=== PATIENT | male | born 1995 | race Caucasian/White ===

== ENCOUNTER 2020-04-25 12:02 | Outpatient (REF) | payer OTHER, SELFPAY | END 2020-04-25 12:03 | disposition home or self-care (01) | LOC: HO.LAB 12:02 | PROVIDERS: PCP Internal Medicine; Visit Provider Internal Medicine | DX: Z20.828 Contact with and (suspected) exposure to other viral communicable diseases (principal) | CPT/HCPCS: U0003 ==

== ENCOUNTER → 2021-02-13 15:52 | Outpatient (BNVA) | payer OTHER, SELFPAY | PROVIDERS: Visit Provider Internal Medicine Cardiovascular Disease | DX: R06.02 Shortness of breath (principal); R00.2 Palpitations | CPT/HCPCS: 93005 ==

== ENCOUNTER 2025-04-12 09:55 | Outpatient (AMB) | payer BC, SELFPAY ==
--- NOTE | 2025-04-12 10:17 | MHC.PC.OV ---
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 Required: No Accompanied by: Self / Same As Patient Allergies No Known Allergies (No Known Allergies*) Allergy (Verified 04/12/25 10:25) Medication List - Last Reconciled 04/12/25 by Isaias oMise MD No Known Home Meds Tobacco use date assessed: 04/12/25 Dental Screening Dental Screen Date: 04/12/25 Did you have a dental visit in the last 12 months?: No Did you have a dental problem in the last 6 months where you did not have access to dental care?: No Was dental information given to patient?: No HPI HPI Comments History of Present Illness Details The patient is a 30-year-old male presenting to [facility]. The patient reports experiencing heart palpitations a few times a week, with episodes lasting from two to three seconds, and occasionally up to 30 seconds. He has a family history of cardiac issues, including an older brother who potentially due to a heart problem and an uncle with known cardiac issues. The patient has not completed a stress test or other cardiac evaluations previously recommended by a clinical laboratory assistant. The patient denies any current chest pain, headaches, lightheadedness, or joint pain. He reports recent gastrointestinal discomfort characterized by increased gas and bloating over the past two weeks, without any significant dietary changes. The patient experiences anxiety, which he attributes to stress, but it does not significantly impact his daily activities. He consumes alcohol, typically five to six drinks when going out twice a month, and occasionally drinks wine at home a few times a week. He uses marijuana but does not smoke cigarettes. [facility] Medical History Anxiety Surgical History Hx of foot surgery Hx of facial fracture repair Hx of tonsillectomy Family History Father No problems noted. Mother Cardiac abnormality Brother No problems noted. Social History Household Members: None Housing: Apartment Alcohol intake: current Patient Tobacco Use Status: Never used Tobacco e-Cigarette/Vaping Use: Never Used Substance Use Type: Marijuana Current occupational status: employed Current occupation: [employer] Cognitive needs: No Hearing needs: No Vision needs: No Questionnaire PHQ-9 Over the last 2 weeks, how often have you been bothered by any of the following problems? 1. Little interest or pleasure in doing things: not at all 2. Feeling down, depressed, or hopeless: not at all 3. Trouble falling or staying asleep, or sleeping too much: not at all 4. Feeling tired or having little energy: not at all 5. Poor appetite or overeating: not at all 6. Feeling bad about yourself - or that you are a failure or have let yourself or your family down: not at all 7. Trouble concentrating on things, such as reading the newspaper or watching television: not at all 8. Moving or speaking so slowly that other people could have noticed. Or the opposite - being so fidgety or restless that you have been moving around a lot more than usual: not at all 9. Thoughts that you would be better off or of hurting yourself in some way: not at all Total score: 0 Source: Developed by Drs. Cesar Harris, Kassidy Yao, Pablo Pa and colleagues, with an educational selena from [employer]. Thrive Questionnaire Date Thrive assessed: 04/12/25 I am a: Patient What is your living situation today?: I have a steady place to live Within the past 12 months, did the food you bought not last and you didn't have the money to get more?: Sometimes True Within the past 12 months, did you worry whether your food would run out before you got money to buy more?: Sometimes True Do you have trouble paying for medicines?: No Do you have trouble getting transportation to medical appointments?: No Do you have trouble paying your heating and electricity bill?: Yes Do you have trouble taking care of your child, family member or friend?: No Do you have trouble with day-to-day activities such as bathing, preparing meals, shopping, managing finances, etc.?: No Are you currently unemployed and looking for a job?: No Are you interested in more education?: Yes Please select the resources that you would like help with: None Currently or been in a relationship where the following occur: No concerns reported THRIVE Score: 3 AUDIT C Alcohol Use Questionnaire (AUDIT-C) 1. How often do you have a drink containing alcohol?: 2-4 times a month 2. How many drinks containing alcohol do you have on a typical day when you are drinking?: 5 or 6 3. How often do you have six or more drinks on one occasion?: Monthly Total Score: 6 KEVIN-7 AMB Questionnaire KEVIN-7 Feeling nervous, anxious, or on edge: 1 = Several days Not being able to stop or control worryin = More than half the days Worrying too much about different things: 2 = More than half the days Trouble relaxin = Not at all Being so restless that it is hard to sit still: 1 = Several days Becoming easily annoyed or irritable: 1 = Several days Feeling afraid as if something awful might happen: 0 = Not at all Total KEVIN-7 score (0-4 normal; 5-9 mild; 10-14 moderate; 15-21 severe): 7 Source: Developed by Drs. Cesar Harris, Kassidy Yao, Pablo Pa and colleagues, with an educational selena from [employer]. Review of Systems Const Details: Positives besides what was mentioned in HPI are in BOLD Constitutional: No Weight Change, No Fever, No Chills, No Night Sweats, No Fatigue, No Malaise ENT/Mouth: No Hearing Changes, No Ear Pain, No Nasal Congestion, No Sinus Pain, No Hoarseness, No sore throat, No Rhinorrhea, No Swallowing Difficulty Eyes: No Eye Pain, No Swelling, No Redness, No Foreign Body, No Discharge, No Vision Changes Cardiovascular: No Chest Pain, No SOB, No PND, No Dyspnea on Exertion, No Orthopnea, No Claudication, No Edema, No Palpitations Respiratory: No Cough, No Sputum, No Wheezing, No Smoke Exposure, No Dyspnea Gastrointestinal: No Nausea, No Vomiting, No Diarrhea, No Constipation, No Pain, No Heartburn, No Anorexia, No Dysphagia, No Hematochezia, No Melena, No Flatulence, No Jaundice Genitourinary: No Dysmenorrhea, No DUB, No Dyspareunia, No Dysuria, No Urinary Frequency, No Hematuria, No Urinary Incontinence, No Urgency, No Flank Pain, No Urinary Flow Changes, No Hesitancy Musculoskeletal: No Arthralgias, No Myalgias, No Joint Swelling, No Joint Stiffness, No Back Pain, No Neck Pain, No Injury History Skin: No Skin Lesions, No Pruritis, No Hair Changes, No Breast/Skin Changes, No Nipple Discharge Neuro: No Weakness, No Numbness, No Paresthesias, No Loss of Consciousness, No Syncope, No Dizziness, No Headache, No Coordination Changes, No Recent Falls Psych: No Anxiety/Panic, No Depression, No Insomnia, No Personality Changes, No Delusions, No Rumination, No SI/HI/AH/VH, No Social Issues, No Memory Changes, No Violence/Abuse Hx., No Eating Concerns Heme/Lymph: No Bruising, No Bleeding, No Transfusions History, No Lymphadenopathy Endocrine: No Polyuria, No Polydipsia, No Temperature Intolerance Physical exam (Primary Care) Vital Signs: Last Vital Signs Temp 97.5 F 04/12/25 10:18 Pulse 84 04/12/25 10:18 Resp 18 04/12/25 10:18 BP 124/78 04/12/25 10:18 Pulse Ox 99 04/12/25 10:18 Oxygen Delivery Method Room Air 04/12/25 10:18 BMI result Body Mass Index 22.6 Tobacco/Smoking Status: Tobacco use Status Tobacco use date assessed 04/12/25 04/12/25 10:29 Patient Tobacco Use Status Never used Tobacco 04/12/25 10:29 e-Cigarette/Vaping Use Never Used 04/12/25 10:29 PHQ-9: PHQ-9 Score PHQ-9: Total score 0 04/12/25 10:34 Thrive Assessment: Date of Thrive Assessment Date Thrive assessed 04/12/25 04/12/25 10:29 Currently or been in a relationship where the following occur: No concerns reported Const Other: Pertinent findings are in BOLD GENERAL APPEARANCE NAD, activity normal for age, well developed/ well nourished, no cyanosis, pallor, or diaphoresis. EYES lids/conjunctiva normal. EARS/NOSE/THROAT Mucous membranes moist, nares normal, lips/teeth normal uvula midline without oral pharyngeal erythema, exudate or swelling TMs normal bilaterally. No lymphangitis/lymphedema. HEAD/NECK normocephalic atraumatic, no facial trauma, neck is supple. RESPIRATORY respiratory effort normal, speaks in full sentences, no tripod position, no accessory muscle use. Lungs clear to auscultation without rhonchi, wheezes, rales CARDIAC Regular rate and rhythm, no edema. ABDOMINAL Soft, ND/NT. No evidence of fluid wave. No pulsatile masses on exam, rebound tenderness, Reza sign or pain over Mcburney's point. MUSCLES/EXTREMITIES No abnormal range of motion, no swelling. SKIN Warm, pink and dry. No rashes, dermatoses, petechiae or lesions. NEUROLOGICAL Speech is clear and appropriate. Normal level of consciousness. Gait and coordination are normal. 5/5 strength in all extremities. PSYCH Normal mood and affect. Judgement/competence is appropriate Office Procedures Flu Questionnaire Does the patient have a severe egg allergy?: No Does the patient have severe life threatening allergies?: No Does the patient have a fever or illness today?: No Has the patient ever had Guillain-Frohna Syndrome?: No Has the patient ever had any past reaction to a flu shot?: No Immunizations Fluarix [id number] (PF) 45 mcg (15 mcg x 3)/0.5 mL IM syringe Performing Provider: Isaias Moise MD [facility] Administered by: Marilee Booker CMA on 04/12/25 10:57 Dose Route Admin Location Dispensed Lot Number Expiration Date [facility] Suture Gauger 0.5 mL IM Right Deltoid 0.5 mL [id number] 12/20/25 [id number] [employer] VIS Given Date VIS Provided VIS Publication Date 04/12/25 Single Vaccine 24 Eligibility Eligibility Date Funding Source Not [facility] Eligible 04/12/25 Private Coding Level of Care Code New Pt Level 4 (24176) New Pt Prev Care 18-39yr(50234 Diagnoses Palpitations R00.2 Healthcare maintenance Z00.00 KEVIN (generalized anxiety disorder) F41.1 Time Spent (min) 30 Assessment & Plan Assessment & Plan (1) Palpitations: Code(s): R00.2 - Palpitations Category: Medical Plan: Patient was seen by cardiology in the past. They recommended multiple tests however the patient got busy and did not complte them. New cardiology referral placed. We will follow-up cardiology reccs if any. (2) Healthcare maintenance: Code(s): Z00.00 - Encounter for general adult medical examination without abnormal findings Category: Medical Plan: CBC, CMP, Lipid panel, A1C, TSH w T4, vit D. Ordered today. Shingles 2 doses when >50 yo. NI. COVID: two doses. Completed in the past. Pneumococcal: 19-64. NI. Flu vaccine: Today. Tdap: Patient will check it at home and bring records with next visit. Colonoscopy: 45-75. at 45. No family history of colon cancer. AAA: 65 -75. NI. CT lun - 80. NI. PSA: 50 -70 every two years. NI. HIV: Ordered today. HBV: Ordered today. HCV: Ordered today. (3) KEVIN (generalized anxiety disorder): Code(s): F41.1 - Generalized anxiety disorder Category: Medical Plan: Patient has been managing KEVIN with lifestyle modifications. I advised the patient that to let us know if he feels like he is using Alcohol or MJ to help with anxiety. He reports Anxiety is not affecting his daily activities. CTM. Plan I discussed with the patient the importance of evaluating his heart palpitations given his family history of cardiac issues. We agreed on a referral to cardiology for a stress test and potential Holter monitoring. Routine labs were ordered to rule out other causes, including thyroid dysfunction. We also discussed the administration of the flu vaccine, which was given during the visit. I advised the patient to monitor his alcohol and marijuana use, particularly in relation to stress and anxiety management. Orders: Orders Hepatitis B Surface Antigen Today Z00.00 - Encounter for general adult medical examination without abnormal findings Hepatitis B Surface Antibody Today Z00.00 - Encounter for general adult medical examination without abnormal findings Hepatitis B Core Antibody Today Z00.00 - Encounter for general adult medical examination without abnormal findings Comprehensive Met. Panel Today Z00.00 - Encounter for general adult medical examination without abnormal findings HIV Ab/Ag Today Z00.00 - Encounter for general adult medical examination without abnormal findings Hepatitis C Antibody Reflex Today Z00.00 - Encounter for general adult medical examination without abnormal findings Complete Blood Count no Diff Today Z00.00 - Encounter for general adult medical examination without abnormal findings Lipid Panel Today Z00.00 - Encounter for general adult medical examination without abnormal findings TSH reflex Free T4 Today Z00.00 - Encounter for general adult medical examination without abnormal findings Influenza [id number] Immunization Today Z23 - Encounter for immunization Referrals Cardiology Referral R00.2 - Palpitations
[2025-04-12 10:18] VITALS: BP 124/78; PULSE 84; RESP 18; TEMP 36.4; O2SAT 99; BMI 22.6
--- OUTSIDE RECORDS SUMMARY | 2025-04-12 11:26 | XMS_ITS | Clinical Summary ---
Author Organization [facility] Address [address] [place] [phone] Phone Care Team Providers Care Sanipractic Physician Name Role Phone Sukumar Hernandez MD Primary Care Provider [phone] Allergies No known active allergies Medications No known medications Family History Medical History Relation Comments Cancer Father Cancer Maternal Grandmother Cancer Paternal Grandmother Relation Status Comments Brother accidental Father Alive skin cancer Maternal Grandmother Alive Mother Alive Paternal Grandmother Social History Tobacco Use Types Packs/Day Years Used Date Smoking Tobacco: Never Smokeless Tobacco: Never Tobacco Cessation:Counseling Given: Not Answered Alcohol Use Standard Drinks/Week Comments Yes 4 (1 standard drink = 0.6 oz pur e alcohol) couple times per week Child or Family Care Answer Date Record ed Do you have problems with on e of the following making it difficult for you to work, study, or receive health care? No 06/20/2022 Education Answer Date Recorded Are you interested in more education? Not on rosemary e 06/22/2024 Are you concerned about learning? Not on file 06/22/2024 No 06/22/2024 No 06/22/2024 Food Answer Date Recorded Within the past 6 months we worried whether our food would run out before we got money to buy more. Sometimes True 022 Within the past 6 months the food we bought just didn't last and we didn't have enough money to get more. Sometimes True 05/24 Residential Stability Answer Date Recor ded What is your housing situation today? I have teagan sing 06/20/2022 How many times have you moved in the past 12 fri ths? One time 06/20/2022 Paying for Meds Answer Date Recorded Do you have trouble paying for medicines? No 06/20/2022 Paying Utility Bills Answer Date Record ed Do you have trouble paying your heating or elect ricity bill? No 06/20/2022 Transportation Answer Date Recorded Has the lack of transportati on kept you from medical appointments or from getting medications? No 06/20/2022 Unemployment Answer Date Recorded Are you currently unemployed or working on a part-time or temporary basis, and looking for work? No 06/20/2022 Digital Access Answer Date Recorded No 11/17/2022 No 11/17/2022 No 11/17/2022 Reliable internet access at home? Not on file 11/17/2022 Device with a working camera? Not on file Intimate Partner Violence Answer Date R ecorded Denied Basic Needs Not on file 06/20/2022 In the past 12 months have y ou been in a relationship with a person who hurts, threatens, or tries to control you? No 06/20/2022 Worried food would run out Not on file 06/20 In the past 12 months have y ou been in a relationship with a person who hurts, threatens, or tries to control you? No 06/20/2022 Sex and Gender Information Value Date Recorded Sex Assigned at Not on file Legal Sex Male 11:22 AM EST Gender Identity Not on file Sexual Orientation Not on file Last Filed Vital Signs Vital Sign Reading Time Taken Comments Blood Pressure 108/62 06/20/2022 2:51 PM EST Pulse 86 06/20/2022 2:51 PM EST Temperature 36.9 C (98.5 F) 06/20/2022 2:51 PM EST Respiratory Rate 16 06/20/2022 2:51 PM EST Oxygen Saturation 98% 06/20/2022 2:51 PM EST Inhaled Oxygen Concentration - - Weight 77.9 kg (171 lb 12.8 oz) 06/20/2022 2:51 PM EST Height 185.4 cm (6' 1 ) 06/20/2022 2:51 PM EST Body Mass Index 22.67 06/20/2022 2:51 PM EST Plan of Treatment Health Maintenance Due Date Last Done Comments Adult Td,Tdap Booster 1997 HEPATITIS C SCREENING 2015 HIV ONE-TIME SCREENING (18-6 5 YEARS) 2015 DEPRESSION SCREENING 06/20/2023 06/20/2022 INFLUENZA VACCINE (#1) 2025 COVID-19 VACCINE (2024-2 6 season) 2025 12/27/2020, 12/06/2020 SMOKING STATUS SCREENING (On ce After 26 Yrs) Completed 06/20/2022 HEPATITIS A VACCINES Aged Out No long er eligible based on patient's age to complete this topic HIB VACCINES Aged Out No longer eligi ble based on patient's age to complete this topic MENINGOCOCCAL VACCINES (ACWY) Aged Out No longer eligible based on patient's age to complete this topic MENINGOCOCCAL VACCINES (B) Aged Out N o longer eligible based on patient's age to complete this topic PNEUMOCOCCAL VACCINES (0-49 years) Aged Out No longer eligible b ased on patient's age to complete this topic Medical Devices Not on file Insurance O POS [facility] HMO POS HMO POS HMO POS HMO POS [address] [place], [place] [id number] POS Care Teams Sanipractic Physician Relationship Specialty Start Date End Date Sukumar Hernandez MD [address] [place] [id number] [email or web address] PCP - General Internal Medicine 06/20/22 Additional Source Comments The information contained in this document represents components of the legal health record. It is not the complete legal health record.[facility]
== END 2025-04-12 11:01 | disposition home or self-care (01) ==
LOC: HO.HMCH 09:56
PROVIDERS: Visit Provider Internal Medicine
DX: Z00.00 Encounter for general adult medical examination without abnormal findings (principal); R00.2 Palpitations; F41.1 Generalized anxiety disorder; Z23 Encounter for immunization

== ENCOUNTER 2025-04-12 09:55 | Outpatient (REF) | payer BC, SELFPAY ==
[2025-04-12 13:29] LABS: Hematocrit 41.7 % (42.0-52.0); Hemoglobin 13.6 g/dl (14.0-18.0); Mean Corpuscular HGB Conc 32.6 g/dl (31.0-36.0); Mean Corpuscular Hemoglobin 28.4 pg (27.0-33.0); Mean Corpuscular Volume 87.1 fL (80.0-98.0); NRBC Abs Auto 0.000 X10*3/uL (0.0-0.012); NRBC Pct Auto 0.0 /100WBC (0.0-0.2); Platelet Count 247 X10*3/uL (160-400); Red Blood Count 4.79 X10*6/uL (4.60-5.80); White Blood Count 5.4 X10*3/uL (4.8-10.8)
[2025-04-12 14:08] LABS: Alanine Aminotransferase 21 U/L (0-40); Albumin Level 4.6 g/dL (3.5-5.0); Alkaline Phosphatase 56 U/L (39-117); Anion Gap 9 (12-20); Aspartate Amino Transferase 29 U/L (5-37); Blood Urea Nitrogen 16 mg/dL (9-16); Calcium 8.9 mg/dL (8.4-10.2); Carbon Dioxide 28 mmol/L (22-29); Chloride 106 mmol/L (96-108); Cholesterol 114 mg/dL (<200); Estimated Glomerular Filt Rate > 60; HDL Cholesterol 71 mg/dL (>40); Potassium 4.4 mmol/L (3.3-5.1); Sodium 139 mmol/L (135-145); Total Protein 6.9 g/dL (6.5-8.0); Triglycerides 39 mg/dL (<150)
[2025-04-13 03:57] LABS: HBS Num1 0.00 mIU/mL (0-7.99); HBc Num1 0.06 S/CO (0.00-0.79); HBsAGNum1 0.49 S/CO (0.00-0.99); HIV Num 1 0.07 S/CO (0.00-0.99); Hepatitis B Surface Antigen Negative (Negative); ~HepC Num1 0.12 S/CO (0.00-0.79); ~Hepatitis B Surface Antibody NONREACTIVE (Nonreactive); ~Hepatitis C Antibody Nonreactive (Nonreactive)
== END 2025-04-12 09:56 | disposition home or self-care (01) ==
LOC: HO.10HDL 09:55
PROVIDERS: Visit Provider Internal Medicine
DX: Z00.00 Encounter for general adult medical examination without abnormal findings (principal); R00.2 Palpitations; F41.1 Generalized anxiety disorder; Z23 Encounter for immunization
CPT/HCPCS: 36415; 80053; 80061; 84443; 85027; 86704; 86706; 86803; 87340; 87389; 90471; 90656; 96127

== ENCOUNTER 2025-05-26 15:12 | Outpatient (AMB) | payer BC, SELFPAY ==
[2025-05-26 15:17] VITALS: BP 120/70; PULSE 78; BMI 23.7
--- NOTE | 2025-05-26 15:17 | MHC.OFFVIS ---
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 Moving forward, patient will be under Dr. 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 Patient with no known history of coronary artery disease, ischemic disease, or cardiomyopathy. Patient reports that he has been experiencing random palpitations since high school which has been ongoing for over a decade. The palpitations occur about 4-5 days a week and typically lasting for 5-10 seconds. Patient is denying any associated symptoms of chest pain, shortness of breath, dizziness, orthopnea, PND, leg edema, presyncope or syncope. He does recall 1 prolonged episode that lasted for about 10 minutes in March. Patient does also note that he has been recently undergoing increased amount of stress which could be making his palpitations for. Patient has a family history of cardiac issues including his grandfather who had a triple bypass, his mother with ventricular arrhythmias status post ablation and notably his older brother suddenly at the age of 21 and the cause of was unknown. Now that patient is in his 20s, he is more worried about his cardiac health. Patient recently underwent lab work with PCP showing good cholesterol and blood glucose levels. Patient otherwise on no medications. Patient denies smoking cigarettes but does use marijuana and reports occasional alcohol use. [facility] Medical History SOB (shortness of breath) on exertion Anxiety Surgical History Hx of foot surgery Hx of facial fracture repair Hx of tonsillectomy Family History Father No problems noted. Mother Cardiac abnormality History of cardiac ablation Brother No problems noted. Maternal Grandfather H/O heart bypass surgery Maternal Uncle Aortic valve replaced Social History Household Members: None Housing: Apartment Alcohol intake: current Patient Tobacco Use Status: Never used Tobacco e-Cigarette/Vaping Use: Never Used Substance Use Type: Marijuana Current occupational status: employed Current occupation: [employer] Cognitive needs: No Hearing needs: No Vision needs: No Review of Systems Const Denies daytime sleepiness, Denies difficulty sleeping, Denies snoring, Denies stops breathing during sleep and Denies weakness Eyes Denies loss of vision Card Denies chest pain, Denies rapid heart rate, Denies irregular heart rhythm, Denies claudication, Denies leg edema, Denies lightheadedness, Reports palpitations, Denies dyspnea, Denies dyspnea on exertion, Denies orthopnea, Denies paroxysmal nocturnal dyspnea and Denies slow heart rate Resp Denies cough, Denies dyspnea, Denies dyspnea on exertion, Denies snoring and Denies wheezing GI Reports no additional complaints, Denies hematochezia, Denies change in stool character and Denies dyspepsia Denies dysuria and Denies urinary frequency Musc Denies abnormal gait, Denies muscle weakness and Denies numbness Skin/Breast Denies nail changes and Denies rash Neuro Denies abnormal gait, Denies loss of vision, Denies memory loss, Denies numbness and Denies weakness Psych Denies depression, Reports difficulty concentrating, Denies auditory hallucinations and Denies memory loss Endo Reports palpitations Santos/Lymph Denies easy bruising Aller/Immun Denies wheezing Physical Exam Vital Signs: Last Vital Signs Pulse 78 05/26/25 15:17 BP 120/70 05/26/25 15:17 BMI result Body Mass Index 23.7 Const General: cooperative, healthy appearing, comfortable and no acute distress Orientation/consciousness: patient oriented x3 HEENT Head: Yes normal to inspection Neck Neck: Yes normal visual inspection, Yes trachea midline and Yes supple Chest Chest palpation & inspection: normal inspection of the chest Resp Effort & Inspection: normal respiratory effort Auscultation: clear to auscultation bilaterally, no crackles, no rales, no rhonchi and no wheezes Cardio Jugular venous distension: no JVD Palpation: normal PMI Rate: regular rate Rhythm: regular rhythm Heart sounds: S1 normal heart sound present, S2 normal heart sound present, no click, no gallops, no murmurs and no rubs Peripheral pulses: Peripheral pulses 2+ throughout GI Inspection: Yes normal to inspection Palpation (GI): Soft to palpation Auscultation: normal bowel sounds Skin General skin exam: no rashes or lesions noted Neuro General: patient oriented x3 Extrem General: Yes normal to inspection, No no pedal edema and No calf tenderness Psych Appearance: grossly normal Mental Status: mental status grossly normal Speech and movement: Normal speech and movement present Office Procedures EKG Details: EKG today showed normal sinus rhythm with sinus arrhythmia, rate 78 beats per minute, nonspecific ST-T, [place], [place]. [id number], Complete Assessment & Plan Assessment & Plan (1) Palpitations: Code(s): R00.2 - Palpitations Category: Medical (2) Family history of cardiovascular disease: Code(s): Z82.49 - Family history of ischemic heart disease and other diseases of the circulatory system Category: Medical Plan Given the patient's symptoms of palpitations, strong family history of arrhythmias, and his brother's sudden unexplained , we will get a 1 week Holter study to capture patient has daily palpitations and screen for arrhythmias.. We will get an echo to evaluate cardiac structure and function includes during the assessment for valvular disease. Most recent lab work with primary care showing normal lipid profile as well as glucose level. Blood pressure today is within normal limits. Advised on heart healthy diet, regular exercise, adequate hydration, avoiding caffeinated beverages, avoiding stimulants such as marijuana, and emphasized on stress mitigation strategies. Follow-up after testings. In the interim, patient will call the office with any concerns or change in symptoms. This note was generated using voice recognition software. While every effort has been made to ensure accuracy and proper technical marketing engineer, there may be occasional errors that could affect the content or meaning of the described symptoms. Orders: Orders CA echo transthoracic complete Today R00.2 - Palpitations ECG 7 day holter monitor Today R00.2 - Palpitations AMB EKG-In Office Today R00.2 - Palpitations Coding Level of Care Code New Pt Level 4 (18853) Complex visit Add On G2211 Diagnoses Palpitations R00.2 Family history of cardiovascular disease Z82.49 CPT Codes EKG - CPT: 60964-[id number], Complete ([id number]) Time Spent (min) 31 Comment Time spent in reviewing the chart, test results, assessment, counseling and documentation.
--- OUTSIDE RECORDS SUMMARY | 2025-05-26 21:29 | XMS_ITS | Clinical Summary ---
Author Organization [facility] Address [address] [place] [phone] Phone Care Team Providers Care Debrander Name Role Phone Sukumar Hernandez MD Primary Care Provider [phone] Allergies No known active allergies Medications No [...] Devices Not on file Insurance O POS [facility] HMO POS HMO POS HMO POS HMO POS [address] [place], [place] [id number] POS Care Teams Debrander Relationship Specialty Start Date End Date Sukumar Hernandez MD [address] [place] [id number] [email or web address] PCP - General Internal Medicine 06/20/22 Additional Source Comments The information contained in this document represents components of the legal health record. It is not the complete legal health record.[facility]
== END 2025-05-26 15:52 | disposition home or self-care (01) ==
LOC: HO.HCS 15:13
DX: R00.2 Palpitations (principal); Z82.49 Family history of ischemic heart disease and other diseases of the circulatory system
CPT/HCPCS: 93010; 99204

== ENCOUNTER → 2025-05-26 15:12 | Outpatient (BNVA) | payer BC, SELFPAY | DX: R00.2 Palpitations (principal); Z82.49 Family history of ischemic heart disease and other diseases of the circulatory system; Z13.89 Encounter for screening for other disorder | CPT/HCPCS: 93005 ==

== ENCOUNTER → 2025-06-09 15:06 | Outpatient (BNV) | payer BC, SELFPAY | PROVIDERS: PCP Internal Medicine; Visit Provider Internal Medicine Cardiovascular Disease | DX: R00.0 Tachycardia, unspecified (principal) | CPT/HCPCS: 93244 ==

== ENCOUNTER → 2025-06-09 15:08 | Outpatient (REF) | payer BC, SELFPAY ==
--- OUTSIDE RECORDS SUMMARY | 2025-06-09 19:10 | XMS_ITS | Clinical Summary ---
Author Organization [facility] Address [address] [place] [id number] Phone Care Team Providers Care Camp Cook Name Role Phone Sukumar Hernandez MD Primary Care Provider [phone] Allergies No known active allergies Medications No [...] Devices Not on file Insurance O POS [facility] HMO POS HMO POS HMO POS HMO POS [address] [place], [place] [id number] POS Care Teams [place] Relationship Specialty Start Date End Date Sukumar Hernandez MD [address] [place] [id number] [email or web address] PCP - General Internal Medicine 06/20/22 Additional Source Comments The information contained in this document represents components of the legal health record. It is not the complete legal health record.[facility]
== END ==
LOC: HO.CARD 15:08
PROVIDERS: PCP Internal Medicine
DX: R00.2 Palpitations (principal)
CPT/HCPCS: 93242